=== PATIENT | female | born 1975 | race Two or more races ===

== ENCOUNTER 2019-01-21 06:07 | Day surgery (SDC) | payer OTHER ==
[~2019-01-21 06:07] MED LIST: METFORMIN HCL500 MG PO; [UNRECOGNIZED DRUG - OTHER] PO
[2019-01-21] MEDS ORDERED: PERCOCET 5-3251 EACH PO (09:23)
[2019-01-21] MEDS ORDERED: NEURONTIN300 MG PO (09:24)
[2019-01-21] MEDS ORDERED: RECTICARE30 GM TOP (09:25)
== END 2019-01-21 14:45 | disposition home or self-care (01) ==
LOC: CIR.AMB 06:07
DX: K64.4 Residual hemorrhoidal skin tags (principal)